=== PATIENT | female | born 1975 | race American Indian/Alaskan Native ===

== ENCOUNTER 2022-06-01 14:13 | Emergency (ER) | payer MEDICAID ==
[~2022-06-01] VITALS: Ht 157.5 cm; Wt 90.9 kg
[2022-06-01 14:32] VITALS: BP 119/59
[2022-06-01] MEDS ORDERED: triamcinolone acet 0.1% cream 15gm TP STA (15:06)
[2022-06-01] MEDS ORDERED: cephalexin 250mg capsule PO ONE (15:10)
[2022-06-01] MEDS ORDERED: ketorolac trometh inj. 60 MG/2 ML VIAL IM ONE (15:20)
[2022-06-01] MEDS ORDERED: CEPH-585 PO (15:20)
== END 2022-06-01 15:46 | disposition home or self-care (01) ==
LOC: ER 14:14
DX: L03.317 Cellulitis of buttock (principal)
CPT/HCPCS: 96372; 99283; J1885

== ENCOUNTER 2022-07-04 21:38 | Emergency (ER) | payer MEDICAID ==
[~2022-07-04] VITALS: Ht 157.5 cm; Wt 91.0 kg
[~2022-07-04 21:38] MED LIST: CEPH-585 PO
[2022-07-04 22:36] LABS: URINE HCG NEGATIVE (NEG)
[2022-07-04 22:38] LABS: CLARITY,URINE SLIGHTLY CLOUDY (Clear); COLOR,URINE YELLOW (Yellow); GLUCOSE, URINE NEGATIVE (Neg); KETONES,URINE NEGATIVE (Neg); LEUKOCYTE ESTERASE ,URINE NEGATIVE (Neg); NITRITES, URINE NEGATIVE (Neg); OCCULT BLOOD,URINE TRACE-INTACT (Neg); PROTEIN,URINE NEGATIVE (Neg); UROBILINOGEN,URINE 0.2 E.U/dL (0.2-1.0)
[2022-07-04 22:40] LABS: UA COLLECTION TYPE CLN CATCH MIDSTREAM
[2022-07-04 22:41] LABS: BASOPHILS # (AUTO) 0.1 X10'3 (0-0.2); EOSINOPHILS # (AUTO) 0.1 X10'3 (0-0.9); EOSINOPHILS % (AUTO) 0.7 % (0-6); LYMPHOCYTES # (AUTO) 2.2 X10'3 (1.1-4.8); MEAN CORPUSCULAR HEMOGLOBIN 28.1 PG (27.0-31.0); NEUTROPHILS % (AUTO) 69.5 % (42-75)
[2022-07-04 22:42] LABS: BASOPHILS % (AUTO) 0.5 % (0-1); HEMATOCRIT 39.7 % (35.0-45.0); HEMOGLOBIN 13.1 g/dl (12.0-16.0); LYMPHOCYTES % (AUTO) 21.3 % (21-51); MEAN CORPUSCULAR HGB CONC 33.1 g/dL (33.0-36.5); MEAN CORPUSCULAR VOLUME 85.1 FL (78-98); MEAN PLATELET VOLUME 7.9 FL (7.4-10.4); MONOCYTES # (AUTO) 0.8 X10'3 (0-0.9); NEUTROPHILS # (AUTO) 7.3 X10'3 (1.8-7.7); PLATELET COUNT 227 X10'3 (140-440); RED BLOOD COUNT 4.66 X10'6 (4.20-5.60); RED CELL DISTRIBUTION WIDTH 14.3 % (11.5-14.5); WHITE BLOOD COUNT 10.5 X10'3 (4.5-11.0)
[2022-07-04 22:48] LABS: BACTERIA,URINE FEW /HPF (Neg); MUCUS STRANDS FEW /LPF (Neg); RBC,URINE 0-2 /HPF (0-2); SQUAMOUS EPITHELIAL CELL,UR MODERATE /LPF (FEW)
[2022-07-04 22:51] LABS: ALANINE AMINOTRANSFERASE 46 U/L (12-78); ALBUMIN 3.2 G/DL (3.4-5.0); ALBUMIN/GLOBULIN RATIO 0.7 (1.1-1.5); ALKALINE PHOSPHATASE 125 IU/L (46-116); AMYLASE 31 U/L (25-115); ANION GAP 7 (8-16); ASPARTATE AMINO TRANSFERASE 30 U/L (10-37); BILIRUBIN,TOTAL 0.3 MG/DL (0.1-1.0); BLOOD UREA NITROGEN 9 MG/DL (7-18); BUN/CREATININE RATIO 13.6 (6.6-38.0); CALCIUM 8.4 MG/DL (8.5-10.1); CHLORIDE 102 MMOL/L (99-107); CREATININE 0.66 MG/DL (0.40-0.90); GLUCOSE 124 MG/DL (70-104); LIPASE < 50 U/L (73-393); POTASSIUM 3.8 MMOL/L (3.5-5.1); SODIUM 134 MMOL/L (135-145); TOTAL CARBON DIOXIDE 24.8 MMOL/L (24-32); TOTAL PROTEIN 7.8 G/DL (6.4-8.2); eGFR > 90 ML/MIN
[2022-07-05 02:32] VITALS: BP 122/86
== END 2022-07-05 05:22 | disposition left against medical advice (07) ==
LOC: ER 21:38
DX: R10.9 Unspecified abdominal pain (principal); Z53.21 Procedure and treatment not carried out due to patient leaving prior to being seen by health care provider
CPT/HCPCS: 36415; 80053; 81001; 81025; 82150; 83690; 85025; 87088